=== PATIENT | male | born 1960 | race Two or more races ===

== ENCOUNTER 2018-03-02 11:05 | Emergency (ER) | payer SELFPAY ==
[~2018-03-02] VITALS: Ht 165.1 cm; Wt 70.8 kg
[2018-03-02 11:11] VITALS: BP 184/102
[2018-03-02] MEDS ORDERED: ketorolac trometh inj. 60 MG/2 ML VIAL IM ONE (12:50)
== END 2018-03-02 14:18 | disposition home or self-care (01) ==
LOC: ER 11:06
DX: M70.61 Trochanteric bursitis, right hip (principal)
CPT/HCPCS: 72170; 96372; 99284; J1885

== ENCOUNTER 2022-03-12 10:57 | Inpatient (IN) | payer OTHER ==
[~2022-03-12] VITALS: Ht 165.1 cm; Wt 66.4 kg
[2022-03-12 11:14] LABS: BASOPHILS % (AUTO) 0.3 % (0-1); EOSINOPHILS # (AUTO) 0.1 X10'3 (0-0.9); EOSINOPHILS % (AUTO) 1.2 % (0-6); HEMATOCRIT 44.5 % (42.0-52.0); HEMOGLOBIN 14.4 g/dl (14.0-17.9); LYMPHOCYTES # (AUTO) 2.9 X10'3 (1.1-4.8); LYMPHOCYTES % (AUTO) 29.9 % (21-51); MEAN CORPUSCULAR HEMOGLOBIN 27.3 PG (27.0-31.0); MEAN CORPUSCULAR HGB CONC 32.4 g/dL (33.0-36.5); MEAN CORPUSCULAR VOLUME 84.3 FL (78-98); MEAN PLATELET VOLUME 8.4 FL (7.4-10.4); MONOCYTES # (AUTO) 0.7 X10'3 (0-0.9); NEUTROPHILS # (AUTO) 6.1 X10'3 (1.8-7.7); NEUTROPHILS % (AUTO) 61.6 % (42-75); PLATELET COUNT 293 X10'3 (140-440); RED BLOOD COUNT 5.28 X10'6 (4.70-6.10); RED CELL DISTRIBUTION WIDTH 14.2 % (11.5-14.5); WHITE BLOOD COUNT 9.8 X10'3 (4.5-11.0)
[2022-03-12 11:27] LABS: ALANINE AMINOTRANSFERASE 17 U/L (12-78); ALBUMIN 3.7 G/DL (3.4-5.0); ALKALINE PHOSPHATASE 54 IU/L (46-116); ANION GAP 8 (8-16); ASPARTATE AMINO TRANSFERASE 22 U/L (10-37); BILIRUBIN,TOTAL 0.6 MG/DL (0.1-1.0); BLOOD UREA NITROGEN 14 MG/DL (7-18); BUN/CREATININE RATIO 15.1 (5.4-32.0); CALCIUM 8.7 MG/DL (8.5-10.1); CHLORIDE 104 MMOL/L (99-107); CREATININE 0.93 MG/DL (0.60-1.10); GLUCOSE 102 MG/DL (70-104); SODIUM 139 MMOL/L (135-145); TOTAL CARBON DIOXIDE 27.3 MMOL/L (24-32); TOTAL PROTEIN 7.3 G/DL (6.4-8.2); eGFR 82 ML/MIN
[2022-03-12] MEDS ORDERED: normal saline 1000ML IV soln IVB ONE (12:05)
[2022-03-12] MEDS ORDERED: nitroGLYCERIN 0.4mg/hour patch TD ONE (12:05)
[2022-03-12] MEDS ORDERED: aspirin 81mg tab.chew PO ONE (12:05)
[2022-03-12] MEDS ORDERED: heparin 10,000 units/1 ML INJ IV ONE (12:05)
[2022-03-12 12:19] LABS: APTT 28 SECONDS (22-32)
[2022-03-12] MEDS: heparin 25,000 UNIT/250ml bag 250 ML IV SCH (12:46)
[2022-03-12] MEDS ORDERED: magnesium hydroxide 30ml (MOM) UD suspension PO PRN (13:40)
[2022-03-12] MEDS ORDERED: acetaminophen 325mg tablet PO PRN (13:40)
[2022-03-12] MEDS: normal saline 1000ml 1,000 ML IV SCH ×2 (13:40→22:23)
[2022-03-12] MEDS ORDERED: mag hydrox/Alum hydrox/simeth 30ml oral suspension PO PRN (13:40)
[2022-03-12] MEDS ORDERED: morphine 2 MG/ML inj. syringe IV PRN (13:40)
[2022-03-12] MEDS ORDERED: PERFLUTREN PROTEIN-A MICROSPHR (Optison) 0.22 MG/ML 3ML VIAL IV ONE (13:40)
[2022-03-12] MEDS ORDERED: ondansetron/PF 4mg/2ml inj IV PRN (13:40)
[2022-03-12] MEDS ORDERED: nitroGLYCERIN-Tridil 50MG/D5W 250 ML IV SCH (13:55)
[2022-03-12] MEDS ORDERED: NO HOME MEDS (15:52)
[2022-03-12] MEDS: docusate sod 100mg capsule PO SCH (20:00)
[2022-03-12] MEDS: carvedilol 6.25mg tablet PO SCH (20:00)
[2022-03-12 20:31] VITALS: BP 190/85
[2022-03-12 22:00] VITALS: BP 170/80
[2022-03-12] MEDS: morphine 2 MG/ML inj. syringe IV PRN (22:26)
[2022-03-13] VITALS (9 sets, daily range): BP systolic 136–192; BP diastolic 62–103
[2022-03-13] MEDS: normal saline 1000ml 1,000 ML IV SCH (01:22)
[2022-03-13] MEDS: heparin 10,000 units/1 ML INJ IV PRN ×2 (01:40→17:46)
--- NOTE | 2022-03-13 05:26 | NUR ---
Patient daughter Rena called, update given on patient condition and informed her of visiting hours.
--- NOTE | 2022-03-13 06:16 | NUR ---
Patient in room PCU 3015. I have received report from Lauren BENAVIDEZ and had the opportunity to ask questions and assume patient care.
[2022-03-13] MEDS: carvedilol 6.25mg tablet PO SCH ×2 (08:00→08:14)
--- NOTE | 2022-03-13 08:10 | NUR ---
Paged Dr Moss regarding POC and patient's diet. MESSAGE: Good morning! Pt: Bill Chawla RM [id number]. Pt NPO. No scheduled test but possibilities of different test and procedures being considered. Please let me know POC so patient can be on the correct diet. Thank you Amarilis [phone]
[2022-03-13] MEDS: docusate sod 100mg capsule PO SCH ×2 (08:14→19:33)
[2022-03-13] MEDS: aspirin 81mg, enteric-coated 1 TAB TABLET.DR PO SCH (08:15)
[2022-03-13] MEDS: atorvastatin 20mg tablet PO SCH (08:15)
[2022-03-13 08:26] LABS: BASOPHILS % (AUTO) 0.4 % (0-1); EOSINOPHILS # (AUTO) 0.2 X10'3 (0-0.9); EOSINOPHILS % (AUTO) 1.5 % (0-6); HEMATOCRIT 41.5 % (42.0-52.0); HEMOGLOBIN 13.5 g/dl (14.0-17.9); LYMPHOCYTES # (AUTO) 2.3 X10'3 (1.1-4.8); LYMPHOCYTES % (AUTO) 19.5 % (21-51); MEAN CORPUSCULAR HEMOGLOBIN 27.6 PG (27.0-31.0); MEAN CORPUSCULAR HGB CONC 32.5 g/dL (33.0-36.5); MONOCYTES # (AUTO) 0.8 X10'3 (0-0.9); MONOCYTES % (AUTO) 6.5 % (2-12); NEUTROPHILS # (AUTO) 8.4 X10'3 (1.8-7.7); NEUTROPHILS % (AUTO) 72.1 % (42-75); PLATELET COUNT 267 X10'3 (140-440); RED BLOOD COUNT 4.88 X10'6 (4.70-6.10); RED CELL DISTRIBUTION WIDTH 13.9 % (11.5-14.5); WHITE BLOOD COUNT 11.6 X10'3 (4.5-11.0)
[2022-03-13 08:41] LABS: ANION GAP 5 (8-16); BLOOD UREA NITROGEN 10 MG/DL (7-18); BUN/CREATININE RATIO 11.9 (5.4-32.0); CHLORIDE 108 MMOL/L (99-107); CREATININE 0.84 MG/DL (0.60-1.10); GLUCOSE 90 MG/DL (70-104); SODIUM 140 MMOL/L (135-145); TOTAL CARBON DIOXIDE 26.8 MMOL/L (24-32); eGFR > 90 ML/MIN
[2022-03-13 08:42] LABS: ALBUMIN 3.3 G/DL (3.4-5.0); CALCIUM 8.5 MG/DL (8.5-10.1); CHOL/HDL RATIO 3.1 (0.00-4.99); CHOLESTEROL 188 MG/DL (0-200); HDL CHOLESTEROL 61 MG/DL (35-60); LDL CHOLESTEROL 106 MG/DL (50-100); TRIGLYCERIDES 49 MG/DL (20-135)
[2022-03-13] MEDS ORDERED: regadenoson 0.4mg/5ml syringe IV PRN (08:50)
[2022-03-13] MEDS ORDERED: nitroGLYCERIN 0.4mg SUBLingual tab SL PRN (08:50)
[2022-03-13] MEDS ORDERED: metoprolol tartrate 1mg/ml inj IV PRN (08:50)
[2022-03-13] MEDS ORDERED: aminophylline 500mg/20ml vial IV PRN (09:10)
[2022-03-13] MEDS: morphine 2 MG/ML inj. syringe IV PRN (10:27)
--- NOTE | 2022-03-13 10:36 | NUR ---
Paged Dr Eli requesting a call back. Need to discuss patient's Blood Pressure, Stress test and him being on IVF.
[2022-03-13] MEDS ORDERED: nitroGLYCERIN-Tridil 50MG/D5W 250 ML IV SCH (10:44)
[2022-03-13] MEDS ORDERED: nitroGLYCERIN 0.4mg/hour patch TD SCH (10:44)
[2022-03-13] MEDS: lisinopril 10 MG tablet PO SCH (11:02)
[2022-03-13] MEDS ORDERED: nicotine 14mg patch - 24hr TD ONE (12:35)
[2022-03-13] MEDS ORDERED: amLODIPine 5mg tablet PO ONE (12:35)
[2022-03-13] MEDS: heparin 25,000 UNIT/250ml bag 250 ML IV SCH (17:47)
--- NOTE | 2022-03-13 18:14 | NUR ---
Problems reprioritized. Patient report given, questions answered & plan of care reviewed with Lauren BENAVIDEZ.
[2022-03-14] VITALS (13 sets, daily range): BP systolic 137–177; BP diastolic 66–87
--- NOTE | 2022-03-14 06:08 | NUR ---
Patient in room PCU 3015. I have received report from Lauren BENAVIDEZ and had the opportunity to ask questions and assume patient care.
[2022-03-14 06:44] LABS: BASOPHILS % (AUTO) 0.4 % (0-1); EOSINOPHILS # (AUTO) 0.3 X10'3 (0-0.9); EOSINOPHILS % (AUTO) 3.2 % (0-6); HEMATOCRIT 41.9 % (42.0-52.0); LYMPHOCYTES # (AUTO) 2.6 X10'3 (1.1-4.8); MEAN CORPUSCULAR HEMOGLOBIN 28.1 PG (27.0-31.0); MEAN CORPUSCULAR HGB CONC 33.3 g/dL (33.0-36.5); MEAN CORPUSCULAR VOLUME 84.3 FL (78-98); MEAN PLATELET VOLUME 8.8 FL (7.4-10.4); MONOCYTES # (AUTO) 0.6 X10'3 (0-0.9); MONOCYTES % (AUTO) 7.5 % (2-12); NEUTROPHILS # (AUTO) 5.1 X10'3 (1.8-7.7); NEUTROPHILS % (AUTO) 58.9 % (42-75); PLATELET COUNT 278 X10'3 (140-440); RED BLOOD COUNT 4.97 X10'6 (4.70-6.10); WHITE BLOOD COUNT 8.7 X10'3 (4.5-11.0)
[2022-03-14 06:45] LABS: ALBUMIN 3.2 G/DL (3.4-5.0); ANION GAP 10 (8-16); BLOOD UREA NITROGEN 14 MG/DL (7-18); BUN/CREATININE RATIO 17.1 (5.4-32.0); CALCIUM 8.7 MG/DL (8.5-10.1); CHLORIDE 103 MMOL/L (99-107); CREATININE 0.82 MG/DL (0.60-1.10); GLUCOSE 91 MG/DL (70-104); POTASSIUM 4.1 MMOL/L (3.5-5.1); SODIUM 138 MMOL/L (135-145); TOTAL CARBON DIOXIDE 24.6 MMOL/L (24-32); eGFR > 90 ML/MIN
[2022-03-14] MEDS: aspirin 81mg, enteric-coated 1 TAB TABLET.DR PO SCH (07:24)
[2022-03-14] MEDS: docusate sod 100mg capsule PO SCH (07:25)
[2022-03-14] MEDS: lisinopril 10 MG tablet PO SCH (07:25)
[2022-03-14] MEDS: atorvastatin 20mg tablet PO SCH (07:25)
[2022-03-14] MEDS ORDERED: nicotine 14mg patch - 24hr TD SCH (08:00)
[2022-03-14] MEDS ORDERED: amLODIPine 5mg tablet PO SCH (08:00)
[2022-03-14] MEDS ORDERED: metoprolol tartrate 1mg/ml inj IV PRN (09:30)
[2022-03-14] MEDS ORDERED: aminophylline 250mg/10ml inj. IV PRN (09:30)
[2022-03-14] MEDS ORDERED: nitroGLYCERIN 0.4mg SUBLingual tab SL PRN (09:30)
[2022-03-14] MEDS ORDERED: regadenoson 0.4mg/5ml syringe IV PRN (09:30)
[2022-03-14] MEDS ORDERED: NOR5T PO (17:19)
[2022-03-14] MEDS ORDERED: ASPI-1071 PO (17:19)
[2022-03-14] MEDS ORDERED: ATOR20TA66 PO (17:19)
[2022-03-14] MEDS ORDERED: LISI10TA27 PO (17:19)
[2022-03-16] MEDS ORDERED: LEVO25TA2 PO (12:09)
== END 2022-03-14 18:00 | disposition home or self-care (01) | DRG 282 ==
LOC: ER 10:58 → ED HOLD 13:39 → PCU 3S 20:10
PROVIDERS: ADMIT Family Medicine; ATTEND Family Medicine
PROC: 4A02XM4 Measurement of Cardiac Total Activity, External Approach (ICD-10-PCS; principal; 2022-03-14)
PROC: 3E033HZ Introduction of Radioactive Substance into Peripheral Vein, Percutaneous Approach (ICD-10-PCS; 2022-03-14)
DX: I21.4 Non-ST elevation (NSTEMI) myocardial infarction (principal); I10 Essential (primary) hypertension; F17.210 Nicotine dependence, cigarettes, uncomplicated; F12.90 Cannabis use, unspecified, uncomplicated; E89.0 Postprocedural hypothyroidism; R94.6 Abnormal results of thyroid function studies; Z79.82 Long term (current) use of aspirin; Z79.899 Other long term (current) drug therapy; Z80.1 Family history of malignant neoplasm of trachea, bronchus and lung; Z85.850 Personal history of malignant neoplasm of thyroid; Z85.46 Personal history of malignant neoplasm of prostate; Z92.3 Personal history of irradiation; Z80.6 Family history of leukemia; Z90.79 Acquired absence of other genital organ(s); Z92.21 Personal history of antineoplastic chemotherapy; Z71.6 Tobacco abuse counseling; R00.1 Bradycardia, unspecified; T44.7X5A Adverse effect of beta-adrenoreceptor antagonists, initial encounter; Y92.230 Patient room in hospital as the place of occurrence of the external cause
CPT/HCPCS: 36415; 71045; 78452; 80048; 80053; 80061; 83880; 84439; 84443; 84484; 85025; 85610; 85730; 87081; 93005; 93017; 93306; 96365; 96376; 99291; A9500; G0378; J1644; J2270; J3490; J7030